=== PATIENT | male | born 2000 | race Caucasian/White ===

== ENCOUNTER 2021-07-02 17:13 | Emergency (ER) | payer OTHER ==
[~2021-07-02 17:13] MED LIST: NORCO 5-325 TA1 EACH PO
[2021-07-02 18:43] LABS: BILIRUBIN NEGATIVE (NEGATIVE); BLOOD NEGATIVE Ery/uL (NEGATIVE); CLARITY CLEAR (CLEAR); COLOR YELLOW (YELLOW); GLUCOSE (U) NORMAL (NORMAL); LEUKOCYTES NEGATIVE Leu/uL (NEGATIVE); NITRITE NEGATIVE (NEGATIVE); PROTEIN NEGATIVE (NEGATIVE); UROBILINOGEN 0.2 mg/dL (0.2-1.0)
[2021-07-02 18:56] LABS: EOSINOPHIL 1.8 % (0-5); HCT 42.9 % (42.0-52.0); HGB 14.7 g/dl (13.2-18.0); LYMPHOCYTE 32.9 % (15-48); MCH 29.5 pg (25.0-31.0); MCHC 34.3 g/dL (32.0-36.0); MONOCYTE 5.3 % (0-12); MPV 9.6 fL (6.0-9.5); NEUTROPHIL 58.8 % (41-80); NRBC 0; PLT 253 K/uL (150-400); RBC 4.99 M/uL (4.70-6.00); WBC 11.4 K/uL (4.0-10.5)
[2021-07-02 19:09] LABS: ALBUMIN 4.3 g/dL (3.4-5.0); BILIRUBIN - TOTAL 0.3 mg/dL (0.2-1.0); BUN/CREAT RATIO (CALC) 26.2 RATIO; CREATININE 0.8 mg/dL (0.67-1.17); GLOBULIN (CALCULATION) 3.2 g/dL; POTASSIUM 3.9 mmol/L (3.5-5.1); TOTAL PROTEIN 7.5 g/dL (6.4-8.2)
[2021-07-02] MEDS ORDERED: NORCO 5-325 TA1 EACH PO (22:24)
[2021-07-02] MEDS ORDERED: FLOMAX0.4 MG PO (22:24)
== END 2021-07-02 23:03 | disposition home or self-care (01) ==
LOC: FER 17:13
PROVIDERS: Emergency Medicine
DX: K59.00 Constipation, unspecified (principal); J45.909 Unspecified asthma, uncomplicated; Z88.0 Allergy status to penicillin
CPT/HCPCS: 36415; 80053; 81003; 82150; 83690; 85025; Q0162

== ENCOUNTER 2022-01-14 21:36 | Day surgery (SDCO) | payer OTHER ==
[~2022-01-14] VITALS: Ht 172.7 cm; Wt 69.5 kg
[~2022-01-14 21:36] MED LIST changes: +FLOMAX0.4 MG PO
[2022-01-14 23:41] LABS: BASOPHIL 0.5 % (0-2); EOSINOPHIL 1.4 % (0-5); HCT 39.9 % (42.0-52.0); HGB 13.4 g/dl (13.2-18.0); LYMPHOCYTE 4.9 % (15-48); MCH 29.5 pg (25.0-31.0); MCHC 33.6 g/dL (32.0-36.0); MCV 87.9 fL (78.0-100.0); MONOCYTE 9.5 % (0-12); MPV 10.1 fL (6.0-9.5); NEUTROPHIL 83.3 % (41-80); NRBC 0; PLT 167 K/uL (150-400); RBC 4.54 M/uL (4.70-6.00); RDW 12.4 % (11.5-14.0); WBC 7.8 K/uL (4.0-10.5)
[2022-01-14 23:42] LABS: BILIRUBIN NEGATIVE (NEGATIVE); BLOOD NEGATIVE Ery/uL (NEGATIVE); CLARITY CLEAR (CLEAR); COLOR YELLOW (YELLOW); GLUCOSE (U) NORMAL (NORMAL); LEUKOCYTES NEGATIVE Leu/uL (NEGATIVE); NITRITE NEGATIVE (NEGATIVE); PROTEIN NEGATIVE (NEGATIVE); SPECIFIC GRAVITY <=1.005 (1.001-1.030); UROBILINOGEN 0.2 mg/dL (0.2-1.0)
[2022-01-14 23:50] LABS: ECSTASY (MDMA) NEGATIVE (NEGATIVE); MARIJUANA (THC) POSITIVE (NEGATIVE); METHADONE NEGATIVE (NEGATIVE); OPIATES NEGATIVE (NEGATIVE)
[2022-01-14 23:51] LABS: AMPHETAMINES NEGATIVE (NEGATIVE); BARBITURATES NEGATIVE (NEGATIVE); OXYCODONE NEGATIVE (NEGATIVE)
[2022-01-15 00:16] LABS: MAGNESIUM 1.6 mg/dL (1.8-2.4)
[2022-01-15 00:34] LABS: ALBUMIN 4.1 g/dL (3.4-5.0); ALKALINE PHOSHATASE 88 U/L (46-116); ALT 21 U/L (16-63); AST 18 U/L (15-37); BILIRUBIN - TOTAL 0.4 mg/dL (0.2-1.0); BUN 12 mg/dL (7-18); BUN/CREAT RATIO (CALC) 14.3 RATIO; CHLORIDE 102 mmol/L (98-107); CO2 (BICARBONATE) 28 mmol/L (21-32); CREATININE 0.84 mg/dL (0.67-1.17); GLOBULIN (CALCULATION) 2.8 g/dL; GLUCOSE 82 mg/dL (74-106); LIPASE 52 U/L (73-393); MAGNESIUM 1.6 mg/dL (1.8-2.4); POTASSIUM 3.4 mmol/L (3.5-5.1); TOTAL PROTEIN 6.9 g/dL (6.4-8.2)
[2022-01-15] MEDS ORDERED: SINGULAIR10 MG PO (06:40)
[2022-01-15] MEDS ORDERED: MOBIC7.5 MG PO (06:41)
[2022-01-15 07:56] LABS: INFLUENZA A NAA NEGATIVE (NEGATIVE)
[2022-01-15 08:02] LABS: CORONAVIRUS 2019 SARS-COV-2 POSITIVE (NEGATIVE)
[2022-01-15 08:07] LABS: ALBUMIN 3.2 g/dL (3.4-5.0); BILIRUBIN - TOTAL 0.5 mg/dL (0.2-1.0); BUN/CREAT RATIO (CALC) 10.7 RATIO; CREATININE 0.75 mg/dL (0.67-1.17); GLOBULIN (CALCULATION) 2.5 g/dL; MAGNESIUM 1.8 mg/dL (1.8-2.4); POTASSIUM 3.5 mmol/L (3.5-5.1); TOTAL PROTEIN 5.7 g/dL (6.4-8.2)
== END 2022-01-15 09:46 | disposition home or self-care (01) ==
LOC: FER 21:36 → FMS 01-15 05:08
PROVIDERS: Internal Medicine; Nurse Practitioner Acute Care; ADMIT Internal Medicine
DX: U07.1 COVID-19 (principal); F12.10 Cannabis abuse, uncomplicated; E83.42 Hypomagnesemia; R11.2 Nausea with vomiting, unspecified; M79.10 Myalgia, unspecified site; R51.9 Headache, unspecified; G57.91 Unspecified mononeuropathy of right lower limb; J45.909 Unspecified asthma, uncomplicated; Z87.891 Personal history of nicotine dependence; Z91.011 Allergy to milk products; Z88.5 Allergy status to narcotic agent; Z88.0 Allergy status to penicillin; Z91.018 Allergy to other foods
CPT/HCPCS: 36415; 80048; 80053; 80305; 81003; 82550; 83690; 83735; 84145; 84439; 84443; 84484; 85025; 93005; G0378; G0480; J1170; J2405; J2550; J3475; J7030; J7120; U0002